=== PATIENT | male | born 1985 | race Two or more races ===

== ENCOUNTER 2019-12-06 12:49 | Emergency (ER) | payer OTHER ==
[~2019-12-06] VITALS: Ht 162.6 cm; Wt 57.7 kg
[2019-12-06 13:06] VITALS: BP 134/81
[2019-12-06] MEDS ORDERED: ACETAMINOPHEN 325 MG TABLET ONE (13:26)
--- NOTE | 2019-12-06 13:28 | NUR ---
MEDS ADMIN PER DEC. XRAY AT BEDSIDE.
[2019-12-06] MEDS ORDERED: ACETAMINOPHEN 325 MG TABLET PO ONE (13:30)
[2019-12-06 14:05] LABS: RAPID INFLUENZA A Negative (Negative); RAPID INFLUENZA B Negative (Negative)
== END 2019-12-06 14:21 | disposition home or self-care (01) ==
LOC: EDBD 12:49 → ED 14:15
DX: J06.9 Acute upper respiratory infection, unspecified (principal)
CPT/HCPCS: 71046; 87081; 87400; 87880; 99284